=== PATIENT | female | born 1995 | race Caucasian/White ===

== ENCOUNTER 2018-05-11 13:56 | Emergency (ER) | payer OTHER ==
[~2018-05-11] VITALS: Ht 165.1 cm; Wt 52.7 kg
[2018-05-11 14:01] VITALS: BP 129/83; PULSE 77; RESP 20; Ht 165.1 cm; Wt 52.7 kg
--- NOTE | 2018-05-11 19:28 | ERD ---
ER Documentation Chief Complaint Chief Complaint Complains of nausea with vomiting, Pt stated she vomited blood 4 days ago HPI 22-year-old female presents with complaint of nausea and vomiting. States that the nausea is intermittent but worse in the morning. In addition she states that there have been some specks of blood in the vomit. Has not been taking any treatments. She also states that she took a test 2 days ago and was positive. Denies any fevers, dysuria, abdominal pain, vaginal discharge, vaginal bleeding, hematuria. Denies past medical history. Denies allergies. Denies medications. Denies surgeries. Denies alcohol, tobacco, drug use. Up to date on vaccines. ROS All systems reviewed and are negative except as per history of present illness. Medications Home Meds Active Scripts Doxylamine/Pyridoxine Hcl (KARIS DR 10-10 MG TABLET) 1 Each Tablet.dr, 2 TAB PO QHS for N/V, #30 TAB Prov:ULISES CABEZAS 05/11/18 Allergies Allergies: Coded Allergies: No Known Allergy (Unverified , 05/11/18) PMhx/Soc Medical and Surgical Hx: pt denies Medical Hx, pt denies Surgical Hx Hx Alcohol Use: No Hx Substance Use: No Hx Tobacco Use: No Smoking Status: Never smoker FmHx Family History: No diabetes, No coronary disease, No other Physical Exam Vitals Vital Signs Date Temp Pulse Resp B/P (MAP) Pulse Ox O2 O2 Flow FiO2 Time Delivery Rate 05/11/18 98.8 77 20 129/83 100 14:01 (98) Physical Exam Const: No acute distress Head: Atraumatic Eyes: Normal Conjunctiva ENT: Normal External Ears, Nose and Mouth. Neck: Full range of motion. No meningismus. Resp: Clear to auscultation bilaterally Cardio: Regular rate and rhythm, no murmurs Abd: Soft, non tender, non distended. Normal bowel sounds. Negative McBurney's. Negative Baumann's. Skin: No petechiae or rashes Back: No midline or flank tenderness Ext: No cyanosis, or edema Neur: Awake and alert Psych: Normal Mood and Affect Result Diagram: 05/11/18192005/11/181920 Results 24 hrs Laboratory Tests Test 05/11/18 19:21 05/11/18 19:27 White Blood Count 6.5 10^3/ul Red Blood Count 4.33 10^6/ul Hemoglobin 12.9 g/dl Hematocrit 39.3 % Mean Corpuscular Volume 90.8 fl Mean Corpuscular Hemoglobin 29.8 pg Mean Corpuscular Hemoglobin Concent 32.8 g/dl Red Cell Distribution Width 12.4 % Platelet Count 295 10^3/UL Mean Platelet Volume 9.5 fl Immature Granulocytes % 0.500 % Neutrophils % 48.4 % Lymphocytes % 42.3 % Monocytes % 6.7 % Eosinophils % 1.8 % Basophils % 0.3 % Nucleated Red Blood Cells % 0.0 /100WBC Immature Granulocytes # 0.030 10^3/ul Neutrophils # 3.2 10^3/ul Lymphocytes # 2.8 10^3/ul Monocytes # 0.4 10^3/ul Eosinophils # 0.1 10^3/ul Basophils # 0.0 10^3/ul Nucleated Red Blood Cells # 0.0 10^3/ul Urine Color YELLOW Urine Clarity SLIGHTLY CLOUDY Urine pH 6.0 Urine Specific [place] 1.025 Urine Ketones NEGATIVE mg/dL Urine Nitrite NEGATIVE mg/dL Urine Bilirubin NEGATIVE mg/dL Urine Urobilinogen NEGATIVE mg/dL Urine Leukocyte Esterase NEGATIVE Ronal/ul Urine Microscopic RBC 1 /HPF Urine Microscopic WBC 4 /HPF Urine Squamous Epithelial Cells MODERATE /HPF Urine Bacteria FEW /HPF Urine Mucus FEW /HPF Urine Hemoglobin NEGATIVE mg/dL Urine Glucose NEGATIVE mg/dL Urine Total Protein NEGATIVE mg/dl Sodium Level 139 mmol/L Potassium Level 3.3 mmol/L Chloride Level 99 mmol/L Carbon Dioxide Level 28 mmol/L Anion Gap 12 Blood Urea Nitrogen 11 mg/dl Creatinine 0.55 mg/dl Est Glomerular Filtrat Rate mL/min > 60 mL/min Glucose Level 88 mg/dl Calcium Level 9.3 mg/dl Total Bilirubin 0.5 mg/dl Direct Bilirubin 0.00 mg/dl Indirect Bilirubin 0.5 mg/dl Aspartate Amino Transf (AST/SGOT) 19 IU/L Alanine Aminotransferase (ALT/SGPT) 7 IU/L Alkaline Phosphatase 60 IU/L Total Protein 8.5 g/dl Albumin 4.9 g/dl Globulin 3.60 g/dl Albumin/Globulin Ratio 1.36 Lipase 119 U/L POC Beta HCG, Qualitative POSITIVE Procedures/MDM 22-year-old female presents with complaint of nausea and vomiting. States that the nausea is intermittent but worse in the morning. In addition she states jenny t there have been some specks of blood in the vomit. Has not been taking any treatments. She also states that she took a test 2 days ago and was positive. Denies any fevers, dysuria, abdominal pain, vaginal discharge, hematuria. POC was done and patient is . To note, patient told me that she did not want to have the baby's that she is going to go to a clinic for . I told her that that was her choice and we could provide referrals if needed. Blood ultrasound was within normal limits. Most likely cause of her nausea is related. In addition, patient showing pictures of blood in her vomit and there was scant and non-concerning. I told her of what is most likely result of esophageal irritation secondary to vomiting. Patient given Rx for doxylamine pyridoxine and advised to follow-up with primary care. Patient discharged with strict ER precautions. Patient advised to follow up with PMD. All questions answered at discharge. Departure Diagnosis: Primary Impression: Vomiting Condition: Stable ULISES CABEZAS May 11, 2018 19:28
[2018-05-11] MEDS ORDERED: DOXY1TAB3 PO (20:55)
== END 2018-05-11 21:43 | disposition left against medical advice (07) ==
LOC: FTE 13:56
DX: O21.9 Vomiting of pregnancy, unspecified (principal); Z3A.00 Weeks of gestation of pregnancy not specified
CPT/HCPCS: 80053; 81001; 81025; 83690; 85025; Z7502; 81003; 99283